=== PATIENT | male | born 1970 ===

== ENCOUNTER 2023-07-17 06:25 | Day surgery (SDC) | payer BC ==
[2023-07-17] MEDS ORDERED: Dextrose 5%-0.45% NaCl 1,000 ML IV SCH (06:30)
[2023-07-17] MEDS ORDERED: Midazolam 1 MG/ML 2 ML SDV ONE (07:25)
[2023-07-17] MEDS ORDERED: fentaNYL 100 MCG/2 ML SDV ONE (07:26)
[2023-07-17] MEDS ORDERED: fentaNYL 100 MCG/2 ML SDV IV ONE ×3 (07:26→07:30)
[2023-07-17] MEDS ORDERED: Midazolam 1 MG/ML 2 ML SDV IV ONE ×7 (07:26→07:37)
== END 2023-07-17 09:23 | disposition home or self-care (01) ==
LOC: DL.ENDO 06:25
PROVIDERS: ATTEND Internal Medicine Gastroenterology
DX: Z12.11 Encounter for screening for malignant neoplasm of colon (principal); D12.0 Benign neoplasm of cecum; K57.30 Diverticulosis of large intestine without perforation or abscess without bleeding; E11.9 Type 2 diabetes mellitus without complications; E78.5 Hyperlipidemia, unspecified; Z79.899 Other long term (current) drug therapy
CPT/HCPCS: J2250; J3010; J7042